=== PATIENT | male | born 1975 | race Caucasian/White ===

== ENCOUNTER 2018-07-23 14:53 | Inpatient (IN) | payer MEDICAID, OTHER ==
[~2018-07-23] VITALS: Ht 185.4 cm; Wt 106.0 kg
[2018-07-23 16:04] LABS: RAPID INFLUENZA A Negative (Negative); RAPID INFLUENZA B Negative (Negative)
[2018-07-23] MEDS ORDERED: SODIUM CHLORIDE 0.9% 1,000ML IVBOLUS ONE (16:30)
[2018-07-23] MEDS ORDERED: SODIUM CHLORIDE FLUSH 10ML SYR IVF ONE (16:30)
--- NOTE | 2018-07-23 16:59 | NUR ---
PT TO ED FOR COUGH, SOB AND GENERAL WEAKNESS X 3 DAYS. PA ASSESSMENT COMPLETE. ORDERS RECEIVED ADN IMPLEMENTED. CONNECTED TO ALL MONITORS. AWAITING RESULTS AT THIS TIME.
[2018-07-23 17:01] LABS: ALANINE AMINOTRANSFERASE 47 U/L (12-78); ALBUMIN 4.3 g/dL (3.4-5.0); ANION GAP 4 mmol/L (5-15); CHLORIDE 101 mmol/L (98-107); CREATININE 1.03 mg/dL (0.7-1.3)
[2018-07-23 17:02] LABS: MEAN CORPUSCULAR HEMOGLOBIN 31.1 pg (27.5-34.5); MEAN CORPUSCULAR HGB CONC 33.1 g/dL (33.2-36.2); MEAN CORPUSCULAR VOLUME 93.9 fL (81-97); PLATELET COUNT 291 x10^3/uL (130-400); RED BLOOD COUNT 5.63 x10^6/uL (4.38-5.82); RED CELL DISTRIBUTION WIDTH 12.9 % (9.4-14.8)
[2018-07-23 17:03] LABS: ALKALINE PHOSPHATASE 101 U/L (45-117); BILIRUBIN,TOTAL 0.7 mg/dL (0.2-1.0); TOTAL PROTEIN 8.2 g/dL (6.4-8.2)
[2018-07-23 17:17] LABS: MD YES
[2018-07-23 17:34] LABS: BAND#(MANUAL) 1.34 x10^3/uL; BANDS%(MANUAL) 9 % (0-7); EOS#(MANUAL) 0.15 x10^3/uL (0.0-0.4); EOS% (MANUAL) 1 % (1-7); LYMPH#(MANUAL) 1.19 x10^3/uL (1-3.4); LYMPHS% (MANUAL) 8 % (22-44); MONOS#(MANUAL) 0.45 x10^3/uL (0.3-2.7); MONOS% (MANUAL) 3 % (2-9); SEG#(MANUAL) 11.77 x10^3/uL (1.8-6.8); SEGS% (MANUAL) 79 % (42-75)
[2018-07-23 17:35] LABS: <PLATELET ESTIMATE> ADEQUATE; <PLT MORPHOLOGY> NORMAL PLT MORPH; <RBC MORPHOLOGY> NORMAL
--- NOTE | 2018-07-23 17:45 | NUR ---
pt to ct at this time.
[2018-07-23] MEDS ORDERED: OMNIPAQUE 350 MG/ML, 100ML BOTTLE ONE (18:05)
[2018-07-23] MEDS ORDERED: AZITHROMYCIN 500 MG in SODIUM CHLORIDE 0.9% 250 ML IV ONE (19:30)
[2018-07-23] MEDS ORDERED: CEFTRIAXONE PMX 1GM/50ML 50 ML IV ONE (19:30)
[2018-07-23] MEDS ORDERED: CEFTRIAXONE PMX 1GM/50ML 50 ML ONE (19:45)
--- NOTE | 2018-07-23 22:23 | NUR ---
report to lee ann gerber. pt ready for transport.
[2018-07-23] MEDS ORDERED: KETOROLAC 30 MG/1 ML IV PRN (23:00)
[2018-07-23] MEDS ORDERED: ONDANSETRON ODT 4 MG PO PRN (23:00)
[2018-07-23] MEDS ORDERED: DOCUSATE 100 MG CAPSULE PO PRN (23:00)
[2018-07-23 23:18] VITALS: BP 128/78
[2018-07-23] MEDS ORDERED: NICOTINE 14MG/24 HR PATCH.TD24 ONE (23:48)
[2018-07-23] MEDS: NICOTINE 14MG/24 HR PATCH.TD24 TD SCH (23:50)
[2018-07-23] MEDS: ACETAMINOPHEN 325 MG TABLET PO PRN (23:50)
[2018-07-24 03:55] VITALS: BP 110/70
[2018-07-24] MEDS: ACETAMINOPHEN 325 MG TABLET PO PRN ×4 (04:22→19:58)
[2018-07-24 05:33] LABS: MEAN CORPUSCULAR HEMOGLOBIN 32.4 pg (27.5-34.5); MEAN CORPUSCULAR HGB CONC 34.9 g/dL (33.2-36.2); MEAN CORPUSCULAR VOLUME 92.7 fL (81-97); PLATELET COUNT 272 x10^3/uL (130-400); RED BLOOD COUNT 5.08 x10^6/uL (4.38-5.82); RED CELL DISTRIBUTION WIDTH 12.9 % (9.4-14.8)
[2018-07-24 05:39] LABS: ANION GAP 6 mmol/L (5-15); CALCIUM 8.5 mg/dL (8.5-10.1); CHLORIDE 102 mmol/L (98-107); CREATININE 0.99 mg/dL (0.7-1.3)
[2018-07-24 06:07] LABS: MD YES
[2018-07-24 06:09] LABS: BAND#(MANUAL) 0.99 x10^3/uL; BANDS%(MANUAL) 6 % (0-7); EOS% (MANUAL) 3 % (1-7); LYMPH#(MANUAL) 0.99 x10^3/uL (1-3.4); LYMPHS% (MANUAL) 6 % (22-44); MONOS#(MANUAL) 2.31 x10^3/uL (0.3-2.7); MONOS% (MANUAL) 14 % (2-9); SEG#(MANUAL) 11.72 x10^3/uL (1.8-6.8); SEGS% (MANUAL) 71 % (42-75)
[2018-07-24 06:10] LABS: <RBC MORPHOLOGY> NORMAL
[2018-07-24 06:11] LABS: <PLATELET ESTIMATE> ADEQUATE; <PLT MORPHOLOGY> NORMAL PLT MORPH
[2018-07-24 07:47] VITALS: BP 117/77
[2018-07-24] MEDS: CEFTRIAXONE PMX 1GM/50ML 50 ML IV SCH ×2 (09:19→21:41)
[2018-07-24 12:50] VITALS: BP 113/76
[2018-07-24] MEDS: SODIUM CHLORIDE 0.9% 1,000 ML IV SCH (13:30)
[2018-07-24 19:39] VITALS: BP 125/83
[2018-07-24] MEDS: AZITHROMYCIN 500 MG in SODIUM CHLORIDE 0.9% 250 ML IV SCH (19:58)
[2018-07-24] MEDS: NICOTINE 14MG/24 HR PATCH.TD24 TD SCH (19:58)
[2018-07-24] MEDS: DIPHENHYDRAMINE 25 MG CAPSULE PO PRN (21:41)
[2018-07-25 01:45] VITALS: BP 108/75
[2018-07-25] MEDS: SODIUM CHLORIDE 0.9% 1,000 ML IV SCH ×2 (04:11→23:57)
[2018-07-25 05:31] LABS: BASOPHILS # (AUTO) 0.03 x10^3/uL (0-0.1); BASOPHILS % (AUTO) 0 % (0-1); EOSINOPHILS # (AUTO) 0.61 x10^3/uL (0-0.4); EOSINOPHILS % (AUTO) 4 % (1-7); LYMPHOCYTES # (AUTO) 1.59 x10^3/uL (1-3.4); LYMPHOCYTES % (AUTO) 10 % (22-44); MD NO; MEAN CORPUSCULAR HEMOGLOBIN 32.3 pg (27.5-34.5); MEAN CORPUSCULAR HGB CONC 34.7 g/dL (33.2-36.2); MEAN CORPUSCULAR VOLUME 93.2 fL (81-97); MEAN PLATELET VOLUME 8.8 fL (7.4-10.4); MONOCYTES # (AUTO) 1.39 x10^3/uL (0.2-0.8); MONOCYTES % (AUTO) 9 % (2-9); NEUTROPHILS # (AUTO) 11.87 x10^3/uL (1.8-6.8); NEUTROPHILS % (AUTO) 77 % (42-75); PLATELET COUNT 284 x10^3/uL (130-400); RED BLOOD COUNT 4.99 x10^6/uL (4.38-5.82)
[2018-07-25 05:45] LABS: CHLORIDE 103 mmol/L (98-107)
[2018-07-25 05:52] LABS: ANION GAP 7 mmol/L (5-15); CALCIUM 8.6 mg/dL (8.5-10.1); CREATININE 0.97 mg/dL (0.7-1.3)
[2018-07-25 08:45] VITALS: BP 114/68
[2018-07-25] MEDS: CEFTRIAXONE PMX 1GM/50ML 50 ML IV SCH ×2 (09:04→21:13)
[2018-07-25] MEDS: ACETAMINOPHEN 325 MG TABLET PO PRN ×3 (09:05→20:03)
[2018-07-25 14:00] VITALS: BP 109/70
[2018-07-25] MEDS ORDERED: POTASSIUM PHOSPHATE 22 MEQ in SODIUM CHLORIDE 0.9% 500 ML IV ONE (16:30)
[2018-07-25 19:30] VITALS: BP 121/78
[2018-07-25] MEDS: NICOTINE 14MG/24 HR PATCH.TD24 TD SCH (20:03)
[2018-07-25] MEDS: AZITHROMYCIN 500 MG in SODIUM CHLORIDE 0.9% 250 ML IV SCH (20:03)
[2018-07-25] MEDS: DIPHENHYDRAMINE 25 MG CAPSULE PO PRN (21:13)
[2018-07-26 00:23] VITALS: BP 112/77
[2018-07-26 05:15] LABS: BASOPHILS # (AUTO) 0.03 x10^3/uL (0-0.1); BASOPHILS % (AUTO) 0 % (0-1); EOSINOPHILS # (AUTO) 0.88 x10^3/uL (0-0.4); EOSINOPHILS % (AUTO) 7 % (1-7); LYMPHOCYTES # (AUTO) 1.77 x10^3/uL (1-3.4); LYMPHOCYTES % (AUTO) 13 % (22-44); MD NO; MEAN CORPUSCULAR HEMOGLOBIN 31.9 pg (27.5-34.5); MEAN CORPUSCULAR HGB CONC 34.3 g/dL (33.2-36.2); MEAN PLATELET VOLUME 8.3 fL (7.4-10.4); MONOCYTES # (AUTO) 1.18 x10^3/uL (0.2-0.8); MONOCYTES % (AUTO) 9 % (2-9); NEUTROPHILS # (AUTO) 9.72 x10^3/uL (1.8-6.8); NEUTROPHILS % (AUTO) 72 % (42-75); PLATELET COUNT 312 x10^3/uL (130-400); RED BLOOD COUNT 4.91 x10^6/uL (4.38-5.82); RED CELL DISTRIBUTION WIDTH 13.2 % (9.4-14.8)
[2018-07-26 05:27] LABS: ANION GAP 6 mmol/L (5-15); CALCIUM 8.5 mg/dL (8.5-10.1); CHLORIDE 107 mmol/L (98-107)
[2018-07-26 05:28] LABS: CREATININE 0.92 mg/dL (0.7-1.3)
[2018-07-26] MEDS: ACETAMINOPHEN 325 MG TABLET PO PRN ×3 (05:30→20:20)
[2018-07-26 06:35] VITALS: BP 109/75
[2018-07-26] MEDS: CEFTRIAXONE PMX 1GM/50ML 50 ML IV SCH ×2 (09:00→21:28)
[2018-07-26] MEDS: GUAIFENESIN 200 MG TABLET PO SCH ×3 (11:46→20:20)
[2018-07-26 13:04] VITALS: BP 118/72
[2018-07-26 18:42] VITALS: BP 126/70
[2018-07-26] MEDS: AZITHROMYCIN 500 MG in SODIUM CHLORIDE 0.9% 250 ML IV SCH (20:15)
[2018-07-26] MEDS: NICOTINE 14MG/24 HR PATCH.TD24 TD SCH (20:21)
[2018-07-27 00:02] VITALS: BP 117/78
[2018-07-27] MEDS: ACETAMINOPHEN 325 MG TABLET PO PRN (04:52)
[2018-07-27] MEDS: GUAIFENESIN 200 MG TABLET PO SCH ×2 (04:52→11:04)
[2018-07-27 05:02] LABS: BASOPHILS # (AUTO) 0.07 x10^3/uL (0-0.1); BASOPHILS % (AUTO) 1 % (0-1); EOSINOPHILS # (AUTO) 1.27 x10^3/uL (0-0.4); EOSINOPHILS % (AUTO) 10 % (1-7); LYMPHOCYTES # (AUTO) 1.82 x10^3/uL (1-3.4); LYMPHOCYTES % (AUTO) 14 % (22-44); MD NO; MEAN CORPUSCULAR HEMOGLOBIN 32.2 pg (27.5-34.5); MEAN CORPUSCULAR HGB CONC 34.5 g/dL (33.2-36.2); MEAN CORPUSCULAR VOLUME 93.4 fL (81-97); MEAN PLATELET VOLUME 8.3 fL (7.4-10.4); MONOCYTES # (AUTO) 1.11 x10^3/uL (0.2-0.8); MONOCYTES % (AUTO) 8 % (2-9); NEUTROPHILS # (AUTO) 9.09 x10^3/uL (1.8-6.8); NEUTROPHILS % (AUTO) 68 % (42-75); PLATELET COUNT 344 x10^3/uL (130-400); RED BLOOD COUNT 4.95 x10^6/uL (4.38-5.82); RED CELL DISTRIBUTION WIDTH 12.7 % (9.4-14.8)
[2018-07-27 05:12] LABS: ANION GAP 5 mmol/L (5-15); CALCIUM 8.7 mg/dL (8.5-10.1); CHLORIDE 105 mmol/L (98-107); CREATININE 0.94 mg/dL (0.7-1.3)
[2018-07-27 07:02] VITALS: BP 113/76
[2018-07-27] MEDS ORDERED: NICO-486 TD (08:49)
[2018-07-27] MEDS ORDERED: BENZ200C48 PO (08:49)
[2018-07-27] MEDS ORDERED: CEFD300C37 PO (08:49)
[2018-07-27] MEDS ORDERED: NICO-485 TD (08:49)
[2018-07-27] MEDS: CEFTRIAXONE PMX 1GM/50ML 50 ML IV SCH (09:02)
[2018-07-27 10:19] VITALS: BP 118/81
== END 2018-07-27 11:35 | disposition home or self-care (01) | DRG 871 ==
LOC: ED 20:10 → EDIP 21:01 → 4NOR 22:38 → DCLOUNGE 07-27 11:21
PROVIDERS: ADMIT Internal Medicine; ATTEND Internal Medicine
DX: A41.9 Sepsis, unspecified organism (principal); J18.9 Pneumonia, unspecified organism; I31.3 Pericardial effusion (noninflammatory); E83.39 Other disorders of phosphorus metabolism; E78.5 Hyperlipidemia, unspecified; E66.9 Obesity, unspecified; F15.11 Other stimulant abuse, in remission; F10.21 Alcohol dependence, in remission; Z87.891 Personal history of nicotine dependence; Z83.3 Family history of diabetes mellitus; Z68.30 Body mass index [BMI] 30.0-30.9, adult
CPT/HCPCS: 36415; 71046; 71260; 80048; 80053; 83605; 83735; 84100; 84145; 85025; 87040; 87400; 90656; 93005; 93306; 96374; 99285; G0378; J0456; J0696; Q9967; J7030; J7040; J7050; Q0163

== ENCOUNTER 2018-10-10 07:32 | Emergency (ER) | payer MEDICAID, OTHER ==
[~2018-10-10] VITALS: Ht 185.4 cm; Wt 107.0 kg
[~2018-10-10 07:32] MED LIST: BENZ200C48 PO; CEFD300C37 PO; NICO-485 TD; NICO-486 TD
--- NOTE | 2018-10-10 07:55 | NUR ---
PT PRESENED TO ED WITH SHORTNESS OF BREATH, INCREASING WEAKNESS, CHILLS SINCE YESTERDAY. PT WAS ADMITTED FOR PNEUMONIA IN JULY AND ADMITTED TO HOSPITAL. PT A&OX4. PT PLACED ON BP AND CONT. PULSE OXIMETER. ASSESSMENT COMPLETED. CALL LIGHT IN REACH.
[2018-10-10 08:21] LABS: BASOPHILS # (AUTO) 0.02 x10^3/uL (0-0.1); BASOPHILS % (AUTO) 0 % (0-1); EOSINOPHILS # (AUTO) 0.02 x10^3/uL (0-0.4); EOSINOPHILS % (AUTO) 0 % (1-7); LYMPHOCYTES # (AUTO) 1.02 x10^3/uL (1-3.4); LYMPHOCYTES % (AUTO) 18 % (22-44); MD NO; MEAN CORPUSCULAR HEMOGLOBIN 31.3 pg (27.5-34.5); MEAN CORPUSCULAR HGB CONC 33.2 g/dL (33.2-36.2); MEAN CORPUSCULAR VOLUME 94.1 fL (81-97); MONOCYTES # (AUTO) 0.73 x10^3/uL (0.2-0.8); MONOCYTES % (AUTO) 13 % (2-9); NEUTROPHILS # (AUTO) 3.82 x10^3/uL (1.8-6.8); NEUTROPHILS % (AUTO) 68 % (42-75); PLATELET COUNT 265 x10^3/uL (130-400); RED BLOOD COUNT 5.24 x10^6/uL (4.38-5.82)
[2018-10-10 08:28] LABS: ALBUMIN 4.3 g/dL (3.4-5.0); ANION GAP 8 mmol/L (5-15); CALCIUM 9.3 mg/dL (8.5-10.1); CHLORIDE 106 mmol/L (98-107); CREATININE 1.15 mg/dL (0.7-1.3)
[2018-10-10 09:27] VITALS: BP 115/76
--- NOTE | 2018-10-10 09:28 | NUR ---
TASK RN: Patient/Caregiver given discharge instructions and they have confirmed that they understand the instructions. Patient ambulatory with steady gait.
== END 2018-10-10 09:29 | disposition home or self-care (01) ==
LOC: ED 08:26
DX: B34.9 Viral infection, unspecified (principal); Z87.891 Personal history of nicotine dependence
CPT/HCPCS: 36415; 71046; 80048; 82040; 83605; 85025; 93005; 99284